=== PATIENT | male | born 1960 | race American Indian/Alaskan Native ===

== ENCOUNTER 2019-01-10 05:55 | Inpatient (IN) | payer OTHER ==
[2019-01-05 11:56] LABS: Basophils % (Auto) 0.6 % (0.0-1.8); Eosinophils # (Auto) 0.2 K/mm3 (0.0-0.4); Eosinophils % (Auto) 4.4 % (0.0-4.3); Hematocrit 39.5 % (35.5-45.6); Hemoglobin 13.6 gm/dl (11.8-15.2); Lymphocytes # (Auto) 1.4 K/mm3 (1.2-5.4); Lymphocytes % (Auto) 29.3 % (13.4-35.0); Mean Corpuscular HGB Conc 34 % (32-34); Mean Corpuscular Volume 89 fl (84-94); Monocytes # (Auto) 0.5 K/mm3 (0.0-0.8); Monocytes % (Auto) 10.1 % (0.0-7.3); Platelet Count 149 K/mm3 (140-440); Red Blood Count 4.44 M/mm3 (3.65-5.03); Red Cell Distribution Width 14.5 % (13.2-15.2)
--- NOTE | 2019-01-05 12:06 | Anesthesia Consultation ---
Anesthesia Consult and Med Hx Date of service: 01/05/19 - Airway Anesthetic Teeth Evaluation: Good ROM Head & Neck: Adequate Mental/Hyoid Distance: Adequate Mallampati Class: Class II Intubation Access Assessment: Probably Good - Pulmonary Exam CTA: Yes - Cardiac Exam Cardiac Exam: RRR - Pre-Operative Health Status ASA Pre-Surgery Classification: ASA3 Proposed Anesthetic Plan: General - Cardiovascular System Hx Hypertension: Yes Hx Coronary Artery Disease: Yes (Denies ME) Hx Heart Attack/AMI: No Hx Percutaneous Transluminal Coronary Angioplasty (PTCA): Yes (Multiple stents) - Central Nervous System Hx Psychiatric Problems: No - Gastrointestinal Hx Gastroesophageal Reflux Disease: Yes (on omeprazole) - Other Systems Hx Cancer: No - Additional Comments Anesthesia Medical History Comments: Bilateral lower extremity claudication. hypercholesterolemia
[2019-01-05 12:09] LABS: INR 1.03 (0.87-1.13); Partial Thromboplastin Time 24.3 Sec. (24.2-36.6)
[2019-01-05 12:12] LABS: Alanine Aminotransferase 45 units/L (7-56); Albumin 3.9 g/dL (3.9-5); BUN/Creatinine Ratio 14; Blood Urea Nitrogen 14 mg/dL (9-20); Calcium 9.1 mg/dL (8.4-10.2); Hemolysis Index 30
[~2019-01-10 05:55] MED LIST: AMIDATE IV ONE; LACTATED RINGERS 1,000 ML IV SCH; VERSED IV NR
[2019-01-10] MEDS ORDERED: NACL BACTERIOSTATIC INFILTRATI ONE (06:19)
[2019-01-10] MEDS ORDERED: MARCAINE 0.5% INFILTRATI ONE ×2 (07:15→09:27)
[2019-01-10] MEDS ORDERED: NACL 0.9% 500 ML 500 ML ONE (07:15)
[2019-01-10] MEDS ORDERED: HEPARIN 10,000 UNITS/10 ML ONE (07:15)
[2019-01-10] MEDS ORDERED: ZOFRAN IV PRN ×2 (07:16→14:00)
[2019-01-10] MEDS ORDERED: PROTAMINE SULFATE ONE (07:16)
[2019-01-10] MEDS ORDERED: SUBLIMAZE IV PRN (07:16)
[2019-01-10] MEDS ORDERED: RIFADIN ONE (07:16)
[2019-01-10] MEDS ORDERED: NACL P/F VIAL (10 ML) 10 ML ONE (07:17)
--- NOTE | 2019-01-10 07:18 | Anesthesia Day of Surgery ---
Anesthesia Day of Surgery - Day of Surgery Patient Examined: Yes Patient H&P Reviewed: Yes Patient is NPO: Yes Beta Blockers: Yes Cardiac Clearance: Yes
[2019-01-10] MEDS ORDERED: ZOFRAN ONE (07:34)
[2019-01-10] MEDS ORDERED: DIPRIVAN 10 MG/ML IV ONE (07:34)
[2019-01-10] MEDS ORDERED: SUBLIMAZE ONE (07:34)
[2019-01-10] MEDS ORDERED: DECADRON ONE (07:34)
[2019-01-10] MEDS ORDERED: ZEMURON IV ONE (07:34)
[2019-01-10] MEDS ORDERED: VERSED IV NR (08:00)
[2019-01-10] MEDS ORDERED: ANCEF/STERILE WATER 2 GM/20 ML IV NR (08:18)
[2019-01-10] MEDS ORDERED: ANCEF/STERILE WATER 2 GM/20 ML 2 GM/20 ML SYRINGE IV ONE (08:19)
[2019-01-10] MEDS ORDERED: LACTATED RINGERS 1,000 ML ONE ×2 (09:15→13:52)
[2019-01-10] MEDS ORDERED: HEPARIN 10,000 UNITS/10 ML IR ONE (09:25)
[2019-01-10] MEDS ORDERED: NACL 0.9% IR ONE (09:26)
[2019-01-10] MEDS ORDERED: NACL 0.9% 500 ML IRRIGATION ONE (09:26)
[2019-01-10] MEDS ORDERED: RIFADIN IV ONE (09:53)
[2019-01-10] MEDS ORDERED: NACL P/F VIAL (10 ML) INFILTRATI ONE (09:54)
[2019-01-10] MEDS ORDERED: ROBINUL ONE (11:29)
[2019-01-10] MEDS ORDERED: BLOXIVERZ ONE (11:29)
[2019-01-10] MEDS ORDERED: MORPHINE IV PRN ×2 (11:57)
[2019-01-10] MEDS ORDERED: NARCAN 0.4 MG/1 ML IV PRN (11:57)
[2019-01-10] MEDS ORDERED: NORCO 5/325 PO PRN (11:57)
--- NOTE | 2019-01-10 12:58 | Consultation ---
History of Present Illness - Reason for Consult Consult date: 01/10/19 Post-op management Requesting physician: BOO CRUZ - History of Present Illness Status post PVD surgery. Stable with no acute events. Past History Past Medical History: CAD, hypertension, hyperlipidemia Social history: smoking Medications and Allergies Allergies Allergy/AdvReac Type Severity Reaction Status Date / Time No Known Allergies Allergy Unverified 12/30/18 14:28 Home Medications Medication Instructions Recorded Confirmed Last Taken Type Aspirin [Adult Aspirin] 81 mg PO DAILY 12/30/18 01/10/19 01/05/19 History Atorvastatin [Lipitor] 80 mg PO QHS 12/30/18 01/10/19 01/09/19 History Carvedilol [Coreg] 6.25 mg PO DAILY 12/30/18 12/30/18 01/10/19 04:00 History ISOSORBIDE MONOnitrate [Imdur ER] 30 mg PO DAILY 12/30/18 12/30/18 01/10/19 04:00 History Lisinopril [Zestril TAB] 40 mg PO DAILY 12/30/18 12/30/18 01/10/19 04:00 History [place]-3/Dha/Epa/Fish Oil [[place] 3 1 each PO DAILY 12/30/18 12/30/18 01/10/19 04:00 History 500 Softgel] Omeprazole 40 mg PO DAILY 12/30/18 12/30/18 01/10/19 04:00 History Tamsulosin [Flomax] 0.4 mg PO QDAY 12/30/18 01/10/19 01/09/19 History Ticagrelor [Brilinta] 90 mg PO BID 12/30/18 01/10/19 01/03/19 History AtorvaSTATin [Lipitor] 80 mg PO QHS tablet 01/11/19 Unknown Rx Carvedilol [Coreg] 6.25 mg PO DAILY tablet 01/11/19 Unknown Rx HYDROcodone/APAP 7.5-325 [[place] 1 each PO Q6HR PRN #40 tablet 01/11/19 Unknown Rx 7.5/325] Lisinopril [Zestril TAB] 40 mg PO DAILY tablet 01/11/19 Unknown Rx Pantoprazole [Protonix TAB] 40 mg PO DAILY tablet 01/11/19 Unknown Rx Tamsulosin [Flomax] 0.4 mg PO QHS capsule 01/11/19 Unknown Rx Active Meds: Active Medications Acetaminophen/Hydrocodone Bitart ([place] 5/325) 2 each PO Q6H PRN PRN Reason: Pain, Moderate (4-6) Aspirin (Halfprin Ec) 81 mg PO DAILY [facility] Carvedilol (Coreg) 6.25 mg PO DAILY [facility] Fentanyl (Sublimaze) 50 mcg IV Q5MIN PRN PRN Reason: Pain , Severe (7-10) Stop: 01/10/19 16:00 Lactated Ringer's (Lactated Ringers) 1,000 mls @ 100 mls/hr IV DIRECT SEE Last Admin: 01/10/19 06:35 Dose: 100 mls/hr Documented by: Sodium Chloride (Nacl 0.9% 1000 Ml) 1,000 mls @ 75 mls/hr IV DIRECT SEE Cefazolin Sodium (Ancef/Ns 1 Gm/50 Ml) 1 gm in 50 mls @ 100 mls/hr IV Q8H SEE Stop: 01/10/19 20:29 Isosorbide Mononitrate (Imdur) 30 mg PO DAILY SEE Lisinopril (Zestril) 40 mg PO DAILY SEE Midazolam HCl (Versed) 2 mg IV PREOP NR Stop: 01/10/19 22:00 Last Admin: 01/10/19 08:08 Dose: 2 mg Documented by: Miscellaneous Medication (Atorvastatin [Lipitor]) 80 mg PO QHS [facility] Miscellaneous Medication ([place]-3/Dha/Epa/Fish Oil [[place] 3 500 Softgel]) 1 ea ch PO DAILY [facility] Miscellaneous Medication (Omeprazole [Omeprazole]) 40 mg PO DAILY [facility] Morphine Sulfate (Morphine) 4 mg IV Q4H PRN PRN Reason: Pain , Severe (7-10) Morphine Sulfate (Morphine) 2 mg IV Q4H PRN PRN Reason: Pain, Moderate (4-6) Naloxone HCl (Narcan 0.4 Mg/1 Ml) 0.1 mg IV Q2MIN PRN PRN Reason: Res Rate </= 8 or 02 SAT < 92% Ondansetron HCl (Zofran) 4 mg IV ONCE PRN PRN Reason: Nausea And Vomiting Stop: 01/10/19 16:00 Ondansetron HCl (Zofran) 4 mg IV Q8H PRN PRN Reason: Nausea And Vomiting Tamsulosin HCl (Flomax) 0.4 mg PO QDAY SEE Ticagrelor (Brilinta) 90 mg PO BID SEE Review of Systems All systems: negative Exam - Constitutional Vitals: Temp Pulse Resp BP Pulse Ox 97.9 F 63 15 127/64 99 01/10/19 11:33 01/10/19 12:15 01/10/19 12:15 01/10/19 12:15 01/10/19 12:15 General appearance: Present: no acute distress, well-nourished - EENT Eyes: Present: PERRL, EOM intact ENT: hearing intact, clear oral mucosa - Neck Neck: Present: supple, normal ROM - Respiratory Respiratory effort: normal Respiratory: bilateral: CTA - Cardiovascular Rhythm: regular Heart Sounds: Present: S1 & S2 - Extremities Extremities: no ischemia, No edema - Abdominal General gastrointestinal: Present: soft, non-tender, normal bowel sounds Male genitourinary: Present: deferred - Rectal Rectal Exam: deferred Results - Labs CBC & Chem 7: 01/11/19 04:01 01/11/19 04:01 Assessment and Plan 58 y/o male status post PVD surgery. BP control Pulse checking Resume home medications.
[2019-01-10] MEDS ORDERED: NACL 0.9% 1000 ML 1,000 ML IV SCH (14:30)
--- NOTE | 2019-01-10 14:46 | Operative Report ---
Operative Report Operative Report: Date of Procedure: 01/10/2019 Pre-operative Diagnosis: Peripheral Vascular Disease with Left Lower Extremity Claudication Post-operative Diagnosis: Same Procedure(s): 1. Left Femoral Endarterectomy with Bovine Patch Angioplasty Surgeon: Kevin Brock M.D. Equipment Washer: None Anesthesia: Gen. Endotracheal Anesthesia EBL: 200 mL Counts: Correct Complications: None Condition: Stable Findings: Successful left femoral endarterectomy with bovine patch angioplasty with palpable pedal pulses at the completion of the case. Specimen: Left femoral plaque sent to pathology Indication: The patient is a 58-year-old male with a history of peripheral vascular disease and coronary artery disease who was found to have significant femoral popliteal artery disease on an angiogram performed by his import coordination and production head. His left common femoral artery had plaque extending into the proximal superficial femoral artery and profunda artery narrowing the lumen by approximately 85%. In addition to that he had distal disease that was treated by the import coordination and production head and somewhat improved his symptoms however he had persistent claudication and requires a femoral endarterectomy. He was cleared by his import coordination and production head given his significant coronary artery disease and was given the risks, benefits, and alternative procedures and he consented to the procedure. Description of Procedure: The patient was brought into the operating room and laid in supine position. After general endotracheal anesthesia was achieved the patient was prepped and draped in normal sterile fashion. A longitudinal incision was created in the left groin and carried down to the anterior abdominal wall using sharp dissection. The inguinal ligament was identified and this was carried down to the common femoral artery by sharp dissection. The artery was dissected circumferentially and then controlled with a vessel loop. The dissection was carried medially along the common femoral artery until a caliber change was noted and this was identified as a superficial femoral artery. The superficial femoral artery was dissected circumferentially, distal to the area of identified plaque, and controlled with a vessel loop. I then dissected laterally along the common femoral artery until I identified the profunda artery and this artery was dissected circumferentially and controlled with a vessel loop. Multiple side branches were also controlled with vessel loops after dissecting them circumferentially and then the patient was systemically heparinized with 5000 units of heparin IV. The vessel loops around the side branches were then clamped to the drape to control flow and the common femoral, superficial femoral artery, and profunda arteries were all controlled with vessel clamps. Once flow was controlled I created an arteriotomy extending from the common femoral artery onto the proximal SFA using an 11 blade and Quick scissors. I then used a [place] elevator to create a plane between the artery and the plaque and was the plane was created I continue plane from the lateral wall to the medial wall using the right angle. I divided the plaque and then used a [place] to continue the arterial wall from the plaque more proximally until I had a plane to transect the plaque in the proximal common femoral artery. I then used a [place] to continue the plaque from the arterial wall distally until I had a plane to transect the plaque. Loose debris was then removed from the arterial wall using ringed forceps. There was a flap that was tacked down using 7-0 Prolene in interrupted fashion. Once the artery was free of debris and all flaps were tacked down our flashed all vessels to remove any further debris and then closed the arteriotomy using a bovine patch and two 5-0 Prolene as a running fashion. Prior to completing the patch closure I again flashed the arteries and then flushed the arteriotomy using heparinized saline. I completed the closure and released the clamps allowing flow into the distal arteries. Flow was evaluated by palpation which had excellent pulses distal to the patch closure and as well as with Doppler evaluation which have multiphasic signals in the SFA and profunda artery. Hemostasis on the patch was achieved with 6-0 Prolene. Additional hemostasis within the wound was achieved with a combination of quick clot, FloSeal, and Arixtra. Once hemostasis was achieved the wound was anesthetized with 0.5% Marcaine and closed in 3 layers using a 3-0 Vicryl in running fashion to reapproximate the fascia, 3-0 Vicryl running fashion in the deep dermal layer, and a 4 Monocryl in running fashion and the subcuticular layer. The wound was then dressed with Dermabond. The patient tolerated the procedure well. All sponge, needle, and instrument counts were correct. The patient was transported to the recovery area in stable condition.
--- NOTE | 2019-01-10 17:28 | Post Anesthesia Evaluation ---
- Post Anesthesia Evaluation Patient Participated: Yes Airway Patent: Yes Stable Respiratory Function: Yes Nausea/Vomiting: No Temp > 96.8F: Yes Pain Manageable: Yes Adequeate Hydration: Yes Anesthesia Complications: No
[2019-01-10] MEDS: ANCEF/NS 1 GM/50 ML 1 GM/50 ML BAG IV SCH ×2 (21:29→23:26)
[2019-01-10] MEDS: BRILINTA PO SCH (21:35)
[2019-01-10] MEDS ORDERED: FLOMAX PO SCH (22:00)
[2019-01-10] MEDS ORDERED: NON-FORMULARY (Atorvastatin [Lipitor] 80 MG) PO SCH (22:00)
[2019-01-11 05:46] LABS: Hematocrit 36.5 % (35.5-45.6); Hemoglobin 12.5 gm/dl (11.8-15.2)
[2019-01-11 06:10] LABS: BUN/Creatinine Ratio 11; Blood Urea Nitrogen 11 mg/dL (9-20); Calcium 8.8 mg/dL (8.4-10.2); Hemolysis Index 6
--- NOTE | 2019-01-11 08:35 | Progress Note ---
Assessment and Plan Postoperative day #1 status post left femoral endarterectomy with bovine patch angioplasty. The patient tolerated the procedure well and has no pain. He should ambulate this morning and if he tolerates that without any complications will be discharged today. He has follow-up in the office in 2 weeks. Subjective Date of service: 01/11/19 Principal diagnosis: PVD with Claudication Interval history: POD #1 s/p Left Femoral Endarterectomy with Bovine patch Angioplasty The patient denies any pain. No significant events overnight. Objective - Constitutional Vitals: Vital Signs - 12hr 01/10/19 01/10/19 01/10/19 20:40 20:50 21:00 Temperature Pulse Rate 72 60 62 Pulse Rate [ From Monitor] Respiratory 15 13 13 Rate Blood Pressure 124/53 119/66 119/56 O2 Sat by Pulse 96 96 97 Oximetry 01/10/19 01/10/19 01/10/19 21:10 21:20 21:30 Temperature Pulse Rate 61 64 60 Pulse Rate [ From Monitor] Respiratory 15 14 13 Rate Blood Pressure 119/56 118/56 127/57 O2 Sat by Pulse 99 95 98 Oximetry 01/10/19 01/10/19 01/10/19 21:40 21:50 22:00 Temperature Pulse Rate 59 L 68 62 Pulse Rate [ From Monitor] Respiratory 17 12 11 L Rate Blood Pressure 127/57 123/52 111/58 O2 Sat by Pulse 99 98 99 Oximetry 01/10/19 01/10/19 01/10/19 22:10 22:20 22:30 Temperature Pulse Rate 63 59 L 57 L Pulse Rate [ From Monitor] Respiratory 11 L 11 L 15 Rate Blood Pressure 111/58 110/51 111/49 O2 Sat by Pulse 99 98 99 Oximetry 01/10/19 01/10/19 01/10/19 22:40 22:50 23:00 Temperature Pulse Rate 56 L 58 L 58 L Pulse Rate [ From Monitor] Respiratory 14 11 L 11 L Rate Blood Pressure 111/49 122/50 109/55 O2 Sat by Pulse 95 98 99 Oximetry 01/10/19 01/10/19 01/10/19 23:10 23:20 23:30 Temperature Pulse Rate 57 L 68 49 L Pulse Rate [ From Monitor] Respiratory 11 L 12 12 Rate Blood Pressure 109/55 108/59 96/51 O2 Sat by Pulse 98 100 99 Oximetry 01/10/19 01/10/19 01/10/19 23:40 23:50 23:53 Temperature 98.2 F Pulse Rate 53 L 51 L Pulse Rate [ From Monitor] Respiratory 13 13 Rate Blood Pressure 96/51 119/57 O2 Sat by Pulse 98 98 Oximetry 01/11/19 01/11/19 01/11/19 00:00 00:02 00:10 Temperature Pulse Rate 52 L 58 L 56 L Pulse Rate [ 52 L From Monitor] Respiratory 12 11 L 13 Rate Blood Pressure 116/58 108/59 108/59 O2 Sat by Pulse 99 99 100 Oximetry 01/11/19 01/11/19 01/11/19 00:20 00:30 00:40 Temperature Pulse Rate 55 L 54 L 56 L Pulse Rate [ From Monitor] Respiratory 11 L 11 L 12 Rate Blood Pressure 119/63 113/57 119/63 O2 Sat by Pulse 98 98 98 Oximetry 01/11/19 01/11/19 01/11/19 00:50 01:00 01:10 Temperature Pulse Rate 54 L 57 L 55 L Pulse Rate [ From Monitor] Respiratory 11 L 12 12 Rate Blood Pressure 124/55 121/50 121/50 O2 Sat by Pulse 98 97 98 Oximetry 01/11/19 01/11/19 01/11/19 01:20 01:30 01:40 Temperature Pulse Rate 58 L 53 L 57 L Pulse Rate [ From Monitor] Respiratory 11 L 11 L 12 Rate Blood Pressure 123/56 118/49 124/55 O2 Sat by Pulse 97 98 97 Oximetry 01/11/19 01/11/19 01/11/19 01:50 02:00 02:10 Temperature Pulse Rate 58 L 56 L 53 L Pulse Rate [ From Monitor] Respiratory 12 12 11 L Rate Blood Pressure 116/51 121/52 121/52 O2 Sat by Pulse 98 98 98 Oximetry 01/11/19 01/11/19 01/11/19 02:20 02:30 02:45 Temperature Pulse Rate 56 L 58 L 51 L Pulse Rate [ From Monitor] Respiratory 12 12 14 Rate Blood Pressure 121/54 119/53 121/49 O2 Sat by Pulse 99 98 98 Oximetry 01/11/19 01/11/19 01/11/19 03:00 03:15 03:30 Temperature Pulse Rate 51 L 49 L 52 L Pulse Rate [ From Monitor] Respiratory 12 12 13 Rate Blood Pressure 115/49 112/48 112/45 O2 Sat by Pulse 98 98 98 Oximetry 01/11/19 01/11/19 01/11/19 03:45 04:00 04:16 Temperature 98.5 F Pulse Rate 51 L 59 L 49 L Pulse Rate [ 59 L From Monitor] Respiratory 13 13 14 Rate Blood Pressure 116/50 111/51 113/41 O2 Sat by Pulse 98 98 98 Oximetry 01/11/19 01/11/19 01/11/19 04:30 04:45 05:00 Temperature Pulse Rate 50 L 53 L 51 L Pulse Rate [ From Monitor] Respiratory 12 13 12 Rate Blood Pressure 112/38 112/38 116/45 O2 Sat by Pulse 98 98 99 Oximetry 01/11/19 01/11/19 01/11/19 05:30 06:00 08:00 Temperature 98.6 F Pulse Rate 49 L 50 L Pulse Rate [ From Monitor] Respiratory 11 L 11 L Rate Blood Pressure 116/45 124/47 O2 Sat by Pulse 97 99 Oximetry General appearance: Present: no acute distress - Respiratory Respiratory effort: normal - Cardiovascular Heart rate: 83 Rhythm: regular Extremities: no ischemia, pulses intact, pulses symmetrical, normal temperature Extremity abnormal: other (left groin incision is clean, dry, and intact without any evidence of hematoma) - Gastrointestinal General gastrointestinal: Present: soft, non-tender, non-distended - Musculoskeletal Musculoskeletal: strength equal bilaterally - Labs CBC & Chem 7: 01/11/19 04:01 01/11/19 04:01 Labs: Abnormal lab results 01/11/19 Range/Units 04:01 Glucose 134 H (75-100) mg/dL Medications & Allergies - Medications Allergies/Adverse Reactions: Allergies No Known Allergies Allergy (Unverified 12/30/18 14:28) Home Medications: Home Medications Medication Instructions Recorded Confirmed Last Taken Type Aspirin [Adult Aspirin] 81 mg PO DAILY 12/30/18 01/10/19 01/05/19 History Atorvastatin [Lipitor Tab] 80 mg PO QHS 12/30/18 01/10/19 01/09/19 History Carvedilol [Coreg] 6.25 mg PO DAILY 12/30/18 12/30/18 01/10/19 04:00 History ISOSORBIDE MONOnitrate [Imdur ER] 30 mg PO DAILY 12/30/18 12/30/18 01/10/19 04:00 History Lisinopril [Zestril TAB] 40 mg PO DAILY 12/30/18 12/30/18 01/10/19 04:00 History [place]-3/Dha/Epa/Fish Oil [[place] 3 1 each PO DAILY 12/30/18 12/30/18 01/10/19 04:00 History 500 Softgel] Omeprazole 40 mg PO DAILY 12/30/18 12/30/18 01/10/19 04:00 History Tamsulosin [Flomax] 0.4 mg PO QDAY 12/30/18 01/10/19 01/09/19 History Ticagrelor [Brilinta] 90 mg PO BID 12/30/18 01/10/19 01/03/19 History Active Medications: Generic Name Dose Route Start Last Admin Trade Name Freq PRN Reason Stop Dose Admin Acetaminophen/Hydrocodone Bitart 2 each 01/10/19 11:57 [place] 5/325 PO Q6H PRN Pain, Moderate (4-6) Aspirin 81 mg 01/11/19 10:00 Halfprin Ec PO DAILY [facility] Atorvastatin Calcium 80 mg 01/10/19 22:00 01/10/19 21:35 Lipitor PO 80 mg QHS [facility] Administration Carvedilol 6.25 mg 01/11/19 10:00 Coreg PO DAILY [facility] Sodium Chloride 1,000 mls @ 75 mls/hr 01/10/19 14:30 Nacl 0.9% 1000 Ml IV DIRECT [facility] Isosorbide Mononitrate 30 mg 01/11/19 10:00 Imdur PO DAILY [facility] Lisinopril 40 mg 01/11/19 10:00 Zestril PO DAILY [facility] Morphine Sulfate 4 mg 01/10/19 11:57 Morphine IV Q4H PRN Pain , Severe (7-10) Morphine Sulfate 2 mg 01/10/19 11:57 Morphine IV Q4H PRN Pain, Moderate (4-6) Naloxone HCl 0.1 mg 01/10/19 11:57 Narcan 0.4 Mg/1 Ml IV Q2MIN PRN Res Rate </= 8 or 02 SAT < 92% Ondansetron HCl 4 mg 01/10/19 14:00 Zofran IV Q8H PRN Nausea And Vomiting Pantoprazole Sodium 40 mg 01/11/19 10:00 Protonix PO DAILY [facility] Tamsulosin HCl 0.4 mg 01/10/19 22:00 01/10/19 22:02 Flomax PO 0.4 mg QHS SEE Administration Ticagrelor 90 mg 01/10/19 22:00 01/10/19 21:35 Brilinta PO 90 mg BID SEE Administration
--- NOTE | 2019-01-11 08:41 | Short Stay Summary ---
Short Stay Documentation Date of service: 01/11/19 Narrative H&P: See H&P - Allergies and Medications Current Medications: Allergies No Known Allergies Allergy (Unverified 12/30/18 14:28) Home Medications Medication Instructions Recorded Confirmed Last Taken Type Aspirin [Adult Aspirin] 81 mg PO DAILY 12/30/18 01/10/19 01/05/19 History Atorvastatin [Lipitor Tab] 80 mg PO QHS 12/30/18 01/10/19 01/09/19 History Carvedilol [Coreg] 6.25 mg PO DAILY 12/30/18 12/30/18 01/10/19 04:00 History ISOSORBIDE MONOnitrate [Imdur ER] 30 mg PO DAILY 12/30/18 12/30/18 01/10/19 04:00 History Lisinopril [Zestril TAB] 40 mg PO DAILY 12/30/18 12/30/18 01/10/19 04:00 History [place]-3/Dha/Epa/Fish Oil [[place] 3 1 each PO DAILY 12/30/18 12/30/18 01/10/19 04:00 History 500 Softgel] Omeprazole 40 mg PO DAILY 12/30/18 12/30/18 01/10/19 04:00 History Tamsulosin [Flomax] 0.4 mg PO QDAY 12/30/18 01/10/19 01/09/19 History Ticagrelor [Brilinta] 90 mg PO BID 12/30/18 01/10/19 01/03/19 History Active Medications Acetaminophen/Hydrocodone Bitart ([place] 5/325) 2 each PO Q6H PRN PRN Reason: Pain, Moderate (4-6) Aspirin (Halfprin Ec) 81 mg PO DAILY [facility] Atorvastatin Calcium (Lipitor) 80 mg PO QHS [facility] Last Admin: 01/10/19 21:35 Dose: 80 mg Documented by: Carvedilol (Coreg) 6.25 mg PO DAILY [facility] Sodium Chloride (Nacl 0.9% 1000 Ml) 1,000 mls @ 75 mls/hr IV DIRECT SEE Isosorbide Mononitrate (Imdur) 30 mg PO DAILY [facility] Lisinopril (Zestril) 40 mg PO DAILY [facility] Morphine Sulfate (Morphine) 4 mg IV Q4H PRN PRN Reason: Pain , Severe (7-10) Morphine Sulfate (Morphine) 2 mg IV Q4H PRN PRN Reason: Pain, Moderate (4-6) Naloxone HCl (Narcan 0.4 Mg/1 Ml) 0.1 mg IV Q2MIN PRN PRN Reason: Res Rate </= 8 or 02 SAT < 92% Ondansetron HCl (Zofran) 4 mg IV Q8H PRN PRN Reason: Nausea And Vomiting Pantoprazole Sodium (Protonix) 40 mg PO DAILY [facility] Tamsulosin HCl (Flomax) 0.4 mg PO QHS [facility] Last Admin: 01/10/19 22:02 Dose: 0.4 mg Documented by: Ticagrelor (Brilinta) 90 mg PO BID [facility] Last Admin: 01/10/19 21:35 Dose: 90 mg Documented by: - Physical exam Extremities: no ischemia, pulses intact, pulses symmetrical, normal temperature - Hospital course Hospital course: The patient was admitted to the hospital on 01/10/2019 and underwent a successful left femoral endarterectomy with bovine patch angioplasty. He was admitted to the intensive care unit and had no significant events overnight. On postoperative day #1 he is doing well and appears clinically well for discharge home. Date of Procedure: 01/10/2019 Pre-operative Diagnosis: Peripheral Vascular Disease with Left Lower Extremity Claudication Post-operative Diagnosis: Same Procedure(s): 1. Left Femoral Endarterectomy with Bovine Patch Angioplasty Surgeon: Kevin Brock M.D. Caramel Cutter Helper: Bridget Anesthesia: Gen. Endotracheal Anesthesia EBL: 200 mL Counts: Correct Complications: None Condition: Stable Findings: Successful left femoral endarterectomy with bovine patch angioplasty with palpable pedal pulses at the completion of the case. Specimen: Left femoral plaque sent to pathology Indication: The patient is a 58-year-old male with a history of peripheral vascular disease and coronary artery disease who was found to have significant femoral popliteal artery disease on an angiogram performed by his milk sampler. His left common femoral artery had plaque extending into the proximal superficial femoral artery and profunda artery narrowing the lumen by approximately 85%. In addition to that he had distal disease that was treated by the milk sampler and somewhat improved his symptoms however he had persistent claudication and requires a femoral endarterectomy. He was cleared by his milk sampler given his significa nt coronary artery disease and was given the risks, benefits, and alternative procedures and he consented to the procedure. Description of Procedure: The patient was brought into the operating room and laid in supine position. After general endotracheal anesthesia was achieved the patient was prepped and draped in normal sterile fashion. A longitudinal incision was created in the left groin and carried down to the anterior abdominal wall using sharp dissection. The inguinal ligament was identified and this was carried down to the common femoral artery by sharp dissection. The artery was dissected circumferentially and then controlled with a vessel loop. The dissection was carried medially along the common femoral artery until a caliber change was noted and this was identified as a superficial femoral artery. The superficial femoral artery was dissected circumferentially, distal to the area of identified plaque, and controlled with a vessel loop. I then dissected laterally along the common femoral artery until I identified the profunda artery and this artery was dissected circumferentially and controlled with a vessel loop. Multiple side branches were also controlled with vessel loops after dissecting them circumferentially and then the patient was systemically heparinized with 5000 units of heparin IV. The vessel loops around the side branches were then clamped to the drape to control flow and the common femoral, superficial femoral artery, and profunda arteries were all controlled with vessel clamps. Once flow was controlled I created an arteriotomy extending from the common femoral artery onto the proximal SFA using an 11 blade and Quick scissors. I then used a Stanberry elevator to create a plane between the artery and the plaque and was the plane was created I continue plane from the lateral wall to the medial wall using the right angle. I divided the plaque and then used a [place] to continue the arterial wall from the plaque more proximally until I had a plane to transect the plaque in the proximal common femoral artery. I then used a [place] to continue the plaque from the arterial wall distally until I had a plane to transect the plaque. Loose debris was then removed from the arterial wall using ringed forceps. There was a flap that was tacked down using 7-0 Prolene in interrupted fashion. Once the artery was free of debris and all flaps were tacked down our flashed all vessels to remove any further debris and then closed the arteriotomy using a bovine patch and two 5-0 Prolene as a running fashion. Prior to completing the patch closure I again flashed the arteries and then flushed the arteriotomy using heparinized saline. I completed the closure and released the clamps allowing flow into the distal arteries. Flow was evaluated by palpation which had excellent pulses distal to the patch closure and as well as with Doppler evaluation which have multiphasic signals in the SFA and profunda artery. Hemostasis on the patch was achieved with 6-0 Prolene. Additional hemostasis within the wound was achieved with a combination of quick clot, FloSeal, and Arixtra. Once hemostasis was achieved the wound wa s anesthetized with 0.5% Marcaine and closed in 3 layers using a 3-0 Vicryl in running fashion to reapproximate the fascia, 3-0 Vicryl running fashion in the deep dermal layer, and a 4 Monocryl in running fashion and the subcuticular layer. The wound was then dressed with Dermabond. The patient tolerated the procedure well. All sponge, needle, and instrument counts were correct. The patient was transported to the recovery area in stable condition. - Disposition Condition at discharge: Good Disposition: DC-01 TO HOME OR SELFCARE Short Stay Discharge Plan Activity: other (no heavy lifting or strenuous activity until follow-up in clinic) Wound: open to air, keep clean and dry, other (okay to wash the wound with soap and water but do not soak in water) Follow up with: KEVIN BROCK MD [Staff Physician] - 14 Days Prescriptions: HYDROcodone/APAP 7.5-325 [[place] 7.5/325] 1 each PO Q6HR PRN #40 tablet PRN Reason: Pain
--- NOTE | 2019-01-11 09:11 | Discharge Summary ---
Providers - Providers Date of Admission: 01/10/19 08:28 Date of discharge: 01/11/19 Attending physician: BOO CRUZ 01/10/19 11:57 Consult to Physician [CONS] Routine Comment: Consulting Provider: KATELYNN PRECIADO Physician Instructions: Reason For Exam: Critical Care Management Hospitalization Condition: Good Hospital course: Patient is postop day 1 left common femoral artery endarterectomy. His incision is soft without significant subcutaneous hematoma. No complaints of leg pain. He has palpable dorsalis pedis and posterior tibial arteries. He has not yet ambulated. Disposition: DC- TO HOME OR SELFCARE Core Measure Documentation - Palliative Care Palliative Care/ Comfort Measures: Not Applicable - Core Measures Any of the following diagnoses?: none Exam - Constitutional Vitals: Temp Pulse Resp BP Pulse Ox 98.6 F 82 15 110/45 99 01/11/19 08:00 01/11/19 08:30 01/11/19 08:30 01/11/19 08:30 01/11/19 08:30 General appearance: Present: no acute distress - EENT Eyes: Present: EOM intact ENT: hearing intact - Neck Neck: Present: supple, normal ROM - Respiratory Respiratory effort: normal - Cardiovascular Rhythm: regular - Extremities Extremities: no ischemia - Abdominal General gastrointestinal: Present: deferred Male genitourinary: Present: deferred - Rectal Rectal Exam: deferred - Psychiatric Psychiatric: appropriate mood/affect, cooperative Plan Activity: advance as tolerated Weight Bearing Status: Weight Bear as Tolerated Diet: regular Wound: keep clean and dry, per your surgeon's advice Follow up with: BOO CRUZ MD [Staff Physician] - 14 Days Prescriptions: HYDROcodone/APAP 7.5-325 [[place] 7.5/325] 1 each PO Q6HR PRN #40 tablet PRN Reason: Pain
[2019-01-11] MEDS ORDERED: HALFPRIN EC PO SCH (10:00)
[2019-01-11] MEDS ORDERED: ZESTRIL PO SCH (10:00)
[2019-01-11] MEDS ORDERED: NON-FORMULARY (Omega-3/Dha/Epa/Fish Oil [Omega 3 500 Softgel] 1 EACH) PO SCH (10:00)
[2019-01-11] MEDS ORDERED: NON-FORMULARY (Omeprazole [Omeprazole] 40 MG) PO SCH (10:00)
[2019-01-11] MEDS ORDERED: COREG PO SCH (10:00)
[2019-01-11] MEDS ORDERED: IMDUR PO SCH (10:00)
[2019-01-11] MEDS: BRILINTA PO SCH (10:00)
[2019-01-11] MEDS ORDERED: PROTONIX PO SCH (10:00)
[2019-01-11] MEDS ORDERED: FLOMAX PO SCH (10:00)
[2019-01-11 10:01] VITALS: BP 127/53
--- NOTE | 2019-01-11 10:46 | Progress Note ---
Assessment and Plan 58 y/o male status post PVD surgery. D/C home resume home medication regimen All others including outpatient pain control and additional meds per vascular surgery. Subjective Date of service: 01/11/19 Principal diagnosis: PVD with Claudication Interval history: No acute events. Patient being discharged this morning. Objective - Constitutional Vitals: Vital Signs - 12hr 01/10/19 01/10/19 01/10/19 22:50 23:00 23:10 Temperature Pulse Rate 58 L 58 L 57 L Pulse Rate [ From Monitor] Respiratory 11 L 11 L 11 L Rate Blood Pressure 122/50 109/55 109/55 O2 Sat by Pulse 98 99 98 Oximetry 01/10/19 01/10/19 01/10/19 23:20 23:30 23:40 Temperature Pulse Rate 68 49 L 53 L Pulse Rate [ From Monitor] Respiratory 12 12 13 Rate Blood Pressure 108/59 96/51 96/51 O2 Sat by Pulse 100 99 98 Oximetry 01/10/19 01/10/19 01/11/19 23:50 23:53 00:00 Temperature 98.2 F Pulse Rate 51 L 52 L Pulse Rate [ 52 L From Monitor] Respiratory 13 12 Rate Blood Pressure 119/57 116/58 O2 Sat by Pulse 98 99 Oximetry 01/11/19 01/11/19 01/11/19 00:02 00:10 00:20 Temperature Pulse Rate 58 L 56 L 55 L Pulse Rate [ From Monitor] Respiratory 11 L 13 11 L Rate Blood Pressure 108/59 108/59 119/63 O2 Sat by Pulse 99 100 98 Oximetry 01/11/19 01/11/19 01/11/19 00:30 00:40 00:50 Temperature Pulse Rate 54 L 56 L 54 L Pulse Rate [ From Monitor] Respiratory 11 L 12 11 L Rate Blood Pressure 113/57 119/63 124/55 O2 Sat by Pulse 98 98 98 Oximetry 01/11/19 01/11/19 01/11/19 01:00 01:10 01:20 Temperature Pulse Rate 57 L 55 L 58 L Pulse Rate [ From Monitor] Respiratory 12 12 11 L Rate Blood Pressure 121/50 121/50 123/56 O2 Sat by Pulse 97 98 97 Oximetry 01/11/19 01/11/19 01/11/19 01:30 01:40 01:50 Temperature Pulse Rate 53 L 57 L 58 L Pulse Rate [ From Monitor] Respiratory 11 L 12 12 Rate Blood Pressure 118/49 124/55 116/51 O2 Sat by Pulse 98 97 98 Oximetry 01/11/19 01/11/19 01/11/19 02:00 02:10 02:20 Temperature Pulse Rate 56 L 53 L 56 L Pulse Rate [ From Monitor] Respiratory 12 11 L 12 Rate Blood Pressure 121/52 121/52 121/54 O2 Sat by Pulse 98 98 99 Oximetry 01/11/19 01/11/19 01/11/19 02:30 02:45 03:00 Temperature Pulse Rate 58 L 51 L 51 L Pulse Rate [ From Monitor] Respiratory 12 14 12 Rate Blood Pressure 119/53 121/49 115/49 O2 Sat by Pulse 98 98 98 Oximetry 01/11/19 01/11/19 01/11/19 03:15 03:30 03:45 Temperature Pulse Rate 49 L 52 L 51 L Pulse Rate [ From Monitor] Respiratory 12 13 13 Rate Blood Pressure 112/48 112/45 116/50 O2 Sat by Pulse 98 98 98 Oximetry 01/11/19 01/11/19 01/11/19 04:00 04:16 04:30 Temperature 98.5 F Pulse Rate 59 L 49 L 50 L Pulse Rate [ 59 L From Monitor] Respiratory 13 14 12 Rate Blood Pressure 111/51 113/41 112/38 O2 Sat by Pulse 98 98 98 Oximetry 01/11/19 01/11/19 01/11/19 04:45 05:00 05:30 Temperature Pulse Rate 53 L 51 L 49 L Pulse Rate [ From Monitor] Respiratory 13 12 11 L Rate Blood Pressure 112/38 116/45 116/45 O2 Sat by Pulse 98 99 97 Oximetry 01/11/19 01/11/19 01/11/19 06:00 06:30 07:00 Temperature Pulse Rate 50 L 49 L 49 L Pulse Rate [ From Monitor] Respiratory 11 L 11 L 10 L Rate Blood Pressure 124/47 124/47 115/52 O2 Sat by Pulse 99 99 99 Oximetry 01/11/19 01/11/19 01/11/19 07:30 08:00 08:30 Temperature 98.6 F Pulse Rate 53 L 55 L 82 Pulse Rate [ From Monitor] Respiratory 10 L 11 L 15 Rate Blood Pressure 115/52 110/45 110/45 O2 Sat by Pulse 100 100 99 Oximetry 01/11/19 01/11/19 09:59 10:00 Temperature Pulse Rate 62 57 L Pulse Rate [ From Monitor] Respiratory Rate Blood Pressure 106/50 127/53 O2 Sat by Pulse Oximetry - Labs CBC & Chem 7: 01/11/19 04:01 01/11/19 04:01 Labs: Abnormal lab results 01/11/19 Range/Units 04:01 Glucose 134 H (75-100) mg/dL Medications & Allergies - Medications Allergies/Adverse Reactions: Allergies No Known Allergies Allergy (Unverified 12/30/18 14:28) Home Medications: Home Medications Medication Instructions Recorded Confirmed Last Taken Type Aspirin [Adult Aspirin] 81 mg PO DAILY 12/30/18 01/10/19 01/05/19 History Atorvastatin [Lipitor] 80 mg PO QHS 12/30/18 01/10/19 01/09/19 History Carvedilol [Coreg] 6.25 mg PO DAILY 12/30/18 12/30/18 01/10/19 04:00 History ISOSORBIDE MONOnitrate [Imdur ER] 30 mg PO DAILY 12/30/18 12/30/18 01/10/19 04:00 History Lisinopril [Zestril TAB] 40 mg PO DAILY 12/30/18 12/30/18 01/10/19 04:00 History [place]-3/Dha/Epa/Fish Oil [[place] 3 1 each PO DAILY 12/30/18 12/30/18 01/10/19 04:00 History 500 Softgel] Omeprazole 40 mg PO DAILY 12/30/18 12/30/18 01/10/19 04:00 History Tamsulosin [Flomax] 0.4 mg PO QDAY 12/30/18 01/10/19 01/09/19 History Ticagrelor [Brilinta] 90 mg PO BID 12/30/18 01/10/19 01/03/19 History AtorvaSTATin [Lipitor] 80 mg PO QHS tablet 01/11/19 Unknown Rx Carvedilol [Coreg] 6.25 mg PO DAILY tablet 01/11/19 Unknown Rx HYDROcodone/APAP 7.5-325 [[place] 1 each PO Q6HR PRN #40 tablet 01/11/19 Unknown Rx 7.5/325] Lisinopril [Zestril TAB] 40 mg PO DAILY tablet 01/11/19 Unknown Rx Pantoprazole [Protonix TAB] 40 mg PO DAILY tablet 01/11/19 Unknown Rx Tamsulosin [Flomax] 0.4 mg PO QHS capsule 01/11/19 Unknown Rx Active Medications: Generic Name Dose Route Start Last Admin Trade Name Freq PRN Reason Stop Dose Admin Acetaminophen/Hydrocodone Bitart 2 each 01/10/19 11:57 [place] 5/325 PO Q6H PRN Pain, Moderate (4-6) Aspirin 81 mg 01/11/19 10:00 01/11/19 10:01 Halfprin Ec PO 81 mg DAILY SEE Administration Atorvastatin Calcium 80 mg 01/10/19 22:00 01/10/19 21:35 Lipitor PO 80 mg QHS SEE Administration Carvedilol 6.25 mg 01/11/19 10:00 01/11/19 10:00 Coreg PO 6.25 mg DAILY SEE Administration Sodium Chloride 1,000 mls @ 75 mls/hr 01/10/19 14:30 Nacl 0.9% 1000 Ml IV DIRECT SEE Isosorbide Mononitrate 30 mg 01/11/19 10:00 01/11/19 09:59 Imdur PO 30 mg DAILY SEE Administration Lisinopril 40 mg 01/11/19 10:00 01/11/19 10:00 Zestril PO 40 mg DAILY SEE Administration Morphine Sulfate 4 mg 01/10/19 11:57 Morphine IV Q4H PRN Pain , Severe (7-10) Morphine Sulfate 2 mg 01/10/19 11:57 Morphine IV Q4H PRN Pain, Moderate (4-6) Naloxone HCl 0.1 mg 01/10/19 11:57 Narcan 0.4 Mg/1 Ml IV Q2MIN PRN Res Rate </= 8 or 02 SAT < 92% Ondansetron HCl 4 mg 01/10/19 14:00 Zofran IV Q8H PRN Nausea And Vomiting Pantoprazole Sodium 40 mg 01/11/19 10:00 01/11/19 10:00 Protonix PO 40 mg DAILY SEE Administration Tamsulosin HCl 0.4 mg 01/10/19 22:00 01/10/19 22:02 Flomax PO 0.4 mg QHS SEE Administration Ticagrelor 90 mg 01/10/19 22:00 01/11/19 10:00 Brilinta PO 90 mg BID SEE Administration
== END 2019-01-11 11:15 | disposition home or self-care (01) | DRG 254 ==
LOC: OR 05:55 → CC1 08:28
PROVIDERS: ADMIT Surgery Vascular Surgery; ATTEND Surgery Vascular Surgery
PROC: 04CL0ZZ Extirpation of Matter from Left Femoral Artery, Open Approach (ICD-10-PCS; principal; 2019-01-10)
PROC: 04UL0KZ Supplement Left Femoral Artery with Nonautologous Tissue Substitute, Open Approach (ICD-10-PCS; 2019-01-10)
DX: I70.213 Atherosclerosis of native arteries of extremities with intermittent claudication, bilateral legs (principal); I25.10 Atherosclerotic heart disease of native coronary artery without angina pectoris; I10 Essential (primary) hypertension; K21.9 Gastro-esophageal reflux disease without esophagitis; E78.00 Pure hypercholesterolemia, unspecified; E78.5 Hyperlipidemia, unspecified; F17.210 Nicotine dependence, cigarettes, uncomplicated; Z79.82 Long term (current) use of aspirin; Z95.5 Presence of coronary angioplasty implant and graft
CPT/HCPCS: 36415; 80048; 80053; 85014; 85018; 85025; 85610; 85730; 86850; 86900; 86901; 88304; 88311; G0378; A9270-GY; C1768; J0690; J1100; J1644; J2250; J2405; J2704; J2710; J2720; J3010; J3490; J7040; J7120